=== PATIENT | female | born 1995 | race Caucasian/White ===

== ENCOUNTER → 2019-03-01 09:19 | Outpatient (CLI) | payer OTHER, SELFPAY ==
[2019-03-01 10:18] LABS: Hemoglobin A1C% w Est Avg Glu 5.5 % (4.0-6.0)
[2019-03-01 10:48] LABS: BUN Creatinine Ratio 12.5 (6-22); Blood Urea Nitrogen 5 mg/dL (7-17); Calcium 9.2 mg/dL (8.4-10.2); Carbon Dioxide 21 mmol/L (22-32); Chloride 105 mmol/L (98-107); Estimated Glomerular Filt Rate > 60.0 mL/min (>60); Glucose 129 mg/dL (70-100); HEMOLYSIS < 15 (0-50); Potassium 4.1 mmol/L (3.4-5.1); Sodium 137 mmol/L (137-145)
[2019-03-01 11:17] LABS: TSH w/ Reflex to FT4 2.98 uIU/mL (0.47-4.68)
== END ==
PROVIDERS: Visit Provider Family Medicine
DX: O24.419 Gestational diabetes mellitus in pregnancy, unspecified control (principal)
CPT/HCPCS: 36415; 80048; 83036; 84443

== ENCOUNTER → 2019-03-08 09:14 | Outpatient (CLI) | payer OTHER, SELFPAY ==
[2019-03-09 11:58] LABS: Strep Grp B PCR NEG for Grp B Strep
== END ==
PROVIDERS: Visit Provider Family Medicine
DX: Z34.83 Encounter for supervision of other normal pregnancy, third trimester (principal); Z3A.36 36 weeks gestation of pregnancy
CPT/HCPCS: 87653

== ENCOUNTER 2019-04-08 06:50 | Inpatient (IN) | payer OTHER, SELFPAY ==
[2019-04-08] MEDS: LACTATED RINGERS 1,000 ML 100 ML IV ×3 (07:55→20:17)
[2019-04-08 08:15] LABS: Add Manual Diff / Slide Review NO; Basophils Absolute Auto 0 /uL (0-100); Basophils Percent Auto 0.4 % (0-2); Eosinophils Absolute Auto 100 /uL (0-450); Eosinophils Percent Auto 0.8 % (2-4); Hematocrit 33.3 % (36-46); Hemoglobin 11.5 g/dL (12.0-16.0); Lymphocytes Absolute Auto 2200 /uL (1100-4500); Lymphocytes Percent Auto 23.4 % (25-40); Mean Corpuscular HGB Conc 34.6 % (30-36); Mean Corpuscular Hemoglobin 27.1 PG (26-34); Mean Corpuscular Volume 78.4 fL (80-100); Monocytes Absolute Auto 500 /uL (0-900); Monocytes Percent Auto 5.1 % (3-14); Neutrophils Absolute Auto 6600 /uL (1500-7000); Neutrophils Percent Auto 70.3 % (50-75); Platelet Count 228 X10^3/uL (150-400); Red Blood Cell Count 4.25 X10^6/uL (4.0-5.2); Red Cell Distribution Width 14.6 % (11.6-14.8); White Blood Cell Count 9.4 X10^3/uL (4.5-11.0)
[2019-04-08] MEDS: OXYTOCIN PREMIX 30 UNIT/500 ML PLAST..BAG IV (09:20)
[2019-04-08 09:58] VITALS: BP 135/74
--- NOTE | 2019-04-08 10:03 | PM.HP.1 ---
History of Present Illness History of Present Illness Date Patient Seen: 04/08/19 Time Patient Seen: 10:03 Chief complaint: PRGENANCY Narrative: Patient is a G2 para 1 estimated due date of 04/05/2019. Consistent with LMP and ultrasound. Patient's care was started late and reduced. She started seeing me at 35 weeks gestational age problems include late transfer of care with limited care history of gestational diabetes with 1st and obesity. She was not treated with gestational diabetes during this and 1 hour GGT was 114. She was brought in the hospital today for induction of labor. For post dates. An estimated increased gestational size. Her 1st baby was 8 lb 13 oz. During her care during the last trimester patient was doing well. She had no headaches no dizziness. No major contractions leaking of fluid. On evaluation today she says she feels fine. No headache dizziness. Vital signs are stable as well as afebrile. Patient's past medical history includes seasonal allergies gestational diabetes with previous ADHD as a child. Surgical history tonsils and adenoids and oral surgery Social history she and her partner here today. Alcohol use and they being before . Patient History Social History Smoking Status: Never smoker Family & Social History Tobacco & Substance use: Smoking Status Never smoker Meds Home Medications and Allergies Home Medications Medication Instructions Recorded Confirmed Type acetaminophen 500 mg tablet 500 mg PO ONCE PRN tab 03/08/19 04/05/19 History cetirizine 10 mg tablet 10 mg PO DAILY PRN 03/08/19 04/05/19 History Allergies Allergy/AdvReac Type Severity Reaction Status Date / Time No Known Drug Allergies Allergy Verified 04/05/19 09:53 Exam Vital Signs (past 8 hours): - 04/08/19 09:58 Blood Pressure 135/74 Narrative Exam Narrative: . General: Alert no apparent distress. Affect is appropriate. Filiberto it is uncomfortable. HEENT: Neck is supple without lymphadenopathy pupils equal round and reactive. Cardio: S1-S2 regular rate and rhythm. Respiratory: Lungs clear to auscultation. Abdomen: Gravid. Extremities: Normal deep tendon reflexes trace edema. : Cervical exam shows 70% effaced almost 1 cm soft mid position -2 station [place]: Sporadic filiberto heart tones: Heart rate of 135 category 1 tracing Objective Labs Result Diagrams: 04/08/19 07:50 Labs: Laboratory Results - last 24 hr 04/08/19 04/08/19 07:50 07:50 WBC 9.4 RBC 4.25 Hgb 11.5 L Hct 33.3 L MCV 78.4 L MCH 27.1 MCHC 34.6 RDW 14.6 Plt Count 228 Neut % (Auto) 70.3 Lymph % (Auto) 23.4 L [place] % (Auto) 5.1 Eos % (Auto) 0.8 L Baso % (Auto) 0.4 Neut # (Auto) 6600 Lymph # (Auto) 2200 [place] # (Auto) 500 Eos # (Auto) 100 Baso # (Auto) 0 Blood Type A Positive Antibody Screen Negative Assessment & Plan Assessment & Plan narrative: 23-year-old G2 para 1 estimated due date of 04/05/2019 40+ weeks for induction of labor. Labor is for being passed 40 weeks and suspected large gestational age with history of gestational diabetes and 1st . Patient's Kwon score is 7. She will be started with Pitocin induction. Risks benefits and common complications of induction of labor reviewed with the patient and partner today informed consent was obtained and orders were written for. Due to patient's body habitus. Patient is providing mild difficulty with monitoring. We may have to use internal monitoring to get a better tracing.
--- NOTE | 2019-04-08 17:10 | P.PN_ITS ---
Subjective Subjective Date Patient Seen: 04/08/19 Time Patient Seen: 17:10 Interval history: Patient seen and evaluated multiple times today. Pitocin got up to 20 mm use. He category 1 to category 2 tracing. heart tones were hard to trace x2 to a mom's body habitus.. Despite adequate contractions. There was no significant cervical change. Mom's vital signs were stable throughout the day and she was afebrile. Cervical change was really not readily apparent. On multiple exams throughout the day. Discussion with the patient and patient's about the category of the tracing Pitocin induction and lack of cervical change. And being post dates. We discussed options about coming back to the hospital with daily and nsts. And retry induction or to proceed with section. After discussion with patient and patient's partner about the risks of an operative delivery versus daily and STDs and retry of induction in 48 hours. And review of concerned about take category 2 tracing sending him home. The and the likelihood of them having a successful trial of labor after today would be limited. Discussed about the concerns of possible nuchal cord but cornea. Also with the her being post dates and a large baby. After review her and her partner the risks benefits common complications of C- section such as bleeding infection injury to bladder or bowel or needed a blood transfusion informed consent was obtained by the patient and signed. Exam Vital Signs (past 8 hours): - 04/08/19 09:58 Blood Pressure 135/74 Objective Labs Result Diagrams: 04/08/19 07:50 Labs: Laboratory Results - last 24 hr 04/08/19 04/08/19 07:50 07:50 WBC 9.4 RBC 4.25 Hgb 11.5 L Hct 33.3 L MCV 78.4 L MCH 27.1 MCHC 34.6 RDW 14.6 Plt Count 228 Neut % (Auto) 70.3 Lymph % (Auto) 23.4 L [place] % (Auto) 5.1 Eos % (Auto) 0.8 L Baso % (Auto) 0.4 Neut # (Auto) 6600 Lymph # (Auto) 2200 [place] # (Auto) 500 Eos # (Auto) 100 Baso # (Auto) 0 Blood Type A Positive Antibody Screen Negative
[2019-04-08] MEDS: CEFAZOLIN 2 GM/100 ML FROZ.PIGGY IV (17:46)
--- NOTE | 2019-04-08 18:04 | SUR.OPER ---
Supine on Padded OR bed, head on pillow, safety belt at thigh, arms secured on padded arm boards at <90 degrees abduction. Bump under right buttock. Legs uncrossed with pillow under knees, gel pad to heels, tape over blanket to lower legs.
--- NOTE | 2019-04-08 18:20 | SUR.OPER ---
FHTs 141 TOB 18:08 alive boy Cord blood x 2 and placenta given to OB nurse
--- NOTE | 2019-04-08 18:46 | P.PCN_ITS ---
Procedures Date/Time Date of procedure: 04/08/19 Time of procedure: 18:47 General Procedure description: Procedure: Lower segment transverse section Consent: Verbal and written informed consent were obtained from the patient placed on the chart. Indications: 23-year-old G2 para 1 category 2 tracing with failed induction with failure to progress Findings: Normal uterus normal ovaries Normal male Apgars 8 and 9 Anesthesia: Spinal Surgeon: Dr. Jair Peace Marketing Communications Assistant: Dr. Parker Alvarado Estimated blood loss: 500 mL Drains: Beltran to gravity. IV fluids: 1800 Description of procedure: The patient was brought to the operating room after her spinal epidural, preparation, and Beltran had been performed. The abdomen was prepped and draped in tested for for analgesia. When it was found to be adequate, a lower abdo eduard Pfannenstiel incision was made with first with a knife and cared down to the fascia with a second knife. The fascia was incised in the midline and extended laterally with a knife. Bleeding points were clamped with hemostats and Bovie coagulated. The rectus muscles were by blunt dissection. The rectus muscles were divided in the midline and the peritoneum was grasped with hemostats and carefully entered with Hawkins scissors. The incision was extended bilaterally. The bladder blade was then placed. The vesicoperitoneum was grasped with smooth pickups, entered with Metzenbaum scissors, and extended laterally. The bladder flap was created by gently blunt dissection and placed behind the bladder blade. The lower uterine segment was noted to be thin was carefully incised with the scalpel and extended laterally with the fingers. A live infant was found to be in the vertex position. The head was then easily elevated with the hand. Head was delivered with the use of a vacuum. The baby was then suctioned and cried immediately, and was handed to the waiting attendant. The placenta was delivered manually. The uterus was explored with a wet lap sponge and found to be clear membranes. The first layer of the uterine closure was with running locking #1 chromic catgut suture. The second layer with an imbricating #1 chromic catgut suture. Hemostasis was carefully checked and found to be satisfactory. The bladder flap was closed with a running 2-0 chromic catgut suture. The fallopian tubes and ovaries were inspected and to be found normal bilaterally. After sponge and needle counts were found to be correct the peritoneum was closed with 2-0 chromic catgut suture. Rectus muscles were approximated in the lower midline. The fascia was closed with a 2 running 0 Vicryl from lateral to midline. The subcutaneous tissue was approximated with interrupted 3.0 plain gut. Bleeding points were Bovie and coagulated. The skin was closed with 1-0 running subcuticular stitch. Urinary output was adequate and normal patient left to the recovery room in good condition.
[2019-04-08 18:51] VITALS: BP 117/66; PULSE 74; RESP 14; TEMP 36.3; O2SAT 99
[2019-04-08 18:56] VITALS: BP 113/60; PULSE 78; RESP 11; O2SAT 97
[2019-04-08 19:01] VITALS: BP 104/66; PULSE 65; RESP 14; O2SAT 97
[2019-04-08 19:06] VITALS: BP 115/69; PULSE 62; PULSE 68; RESP 13; RESP 14; TEMP 36.6; O2SAT 97; O2SAT 98
[2019-04-08 19:21] VITALS: BP 111/70; PULSE 71; RESP 15; TEMP 36.6; O2SAT 98
--- NOTE | 2019-04-08 19:25 | SUR.PHASEI ---
Phase I transfer note: Patient arrived to PACU at 1851 via inpatient bed. VSS on arrival. AA/Ox3. Dermatome level at T-4. No complaints of pain or discomfort. FF @ . Scant Bear zendejas. SCD's on. Tolerating Ice chips. Telephone report [facility]. Stable for transfer.
[2019-04-09] MEDS: KETOROLAC 30 MG/ML VIAL IV ×3 (00:30→12:20)
[2019-04-09] MEDS: OXYCODONE/ACETAMINOPHEN 5/325 TABLET 2 TAB PO (00:59)
[2019-04-09 04:34] VITALS: BP 112/67; PULSE 85; RESP 16; TEMP 36.9
--- NOTE | 2019-04-09 06:46 | P.PN_ITS ---
Subjective Subjective Date Patient Seen: 04/09/19 Time Patient Seen: 06:46 Interval history: day 1. Status post for category 2 tracing. Failure to progress. Large gestational infant. Mom's doing well postoperatively. Minimal incision pain she is using Toradol. Patient was able to stand up at the bedside yesterday. She is off IV fluids had some clear liquid diet. She still has a Beltran catheter in. Bleeding is anticipated she is afebrile. Breast-feeding is going okay. Exam Vital Signs (past 8 hours): Oxygen Delivery Method Room Air Narrative Exam Narrative: General: Alert no apparent distress. Affect is appropriate. Ivon it is uncomfortable. HEENT: Neck is supple without lymphadenopathy pupils equal round and reactive. Cardio: S1-S2 regular rate and rhythm. Respiratory: Lungs clear to auscultation. Abdomen: Uterus firm. Incision clean dry and intact. Extremities: Normal deep tendon reflexes trace edema. Objective Labs Result Diagrams: 04/08/19 07:50 Labs: Laboratory Results - last 24 hr 04/08/19 04/08/19 07:50 07:50 WBC 9.4 RBC 4.25 Hgb 11.5 L Hct 33.3 L MCV 78.4 L MCH 27.1 MCHC 34.6 RDW 14.6 Plt Count 228 Neut % (Auto) 70.3 Lymph % (Auto) 23.4 L [place] % (Auto) 5.1 Eos % (Auto) 0.8 L Baso % (Auto) 0.4 Neut # (Auto) 6600 Lymph # (Auto) 2200 [place] # (Auto) 500 Eos # (Auto) 100 Baso # (Auto) 0 Blood Type A Positive Antibody Screen Negative Assessment & Plan Assessment & Plan narrative: Postoperative day 1 status post . Remove SCDs. Remove Beltran catheter. IV has been hep-locked this can be removed later today. She is getting Toradol with good pain relief. Bleeding is anticipated she is afebrile. Patient is tolerating diet. Continue out of bed to chair limited ambulation working on breast-feeding. Transition to oral pain medication.
[2019-04-09 07:31] LABS: Add Manual Diff / Slide Review NO; Basophils Absolute Auto 0 /uL (0-100); Basophils Percent Auto 0.3 % (0-2); Eosinophils Absolute Auto 0 /uL (0-450); Eosinophils Percent Auto 0.4 % (2-4); Hematocrit 27.9 % (36-46); Hemoglobin 9.6 g/dL (12.0-16.0); Lymphocytes Absolute Auto 1900 /uL (1100-4500); Mean Corpuscular HGB Conc 34.3 % (30-36); Mean Corpuscular Hemoglobin 27.1 PG (26-34); Mean Corpuscular Volume 79.2 fL (80-100); Monocytes Absolute Auto 600 /uL (0-900); Monocytes Percent Auto 6.6 % (3-14); Neutrophils Absolute Auto 6600 /uL (1500-7000); Neutrophils Percent Auto 71.7 % (50-75); Platelet Count 179 X10^3/uL (150-400); Red Blood Cell Count 3.52 X10^6/uL (4.0-5.2); Red Cell Distribution Width 14.6 % (11.6-14.8); White Blood Cell Count 9.2 X10^3/uL (4.5-11.0)
[2019-04-09] MEDS: PRENATAL VIT,CALC/IRON/FOLIC 1 TABLET 1 TAB PO (09:39)
[2019-04-09] MEDS: DOCUSATE 250 MG CAPSULE PO (09:39)
[2019-04-09] MEDS: OXYCODONE/ACETAMINOPHEN 5/325 TABLET 1 TAB PO ×2 (16:41→21:00)
[2019-04-09] MEDS: IBUPROFEN 600 MG TABLET PO (21:25)
[2019-04-10] MEDS: OXYCODONE/ACETAMINOPHEN 5/325 TABLET 2 TAB PO ×3 (01:04→10:22)
[2019-04-10] MEDS: IBUPROFEN 600 MG TABLET PO ×2 (03:04→08:54)
[2019-04-10] MEDS: PRENATAL VIT,CALC/IRON/FOLIC 1 TABLET 1 TAB PO (08:54)
[2019-04-10] MEDS: DOCUSATE 250 MG CAPSULE PO (08:54)
--- NOTE | 2019-04-10 09:19 | PM.DS.1 ---
History of Present Illness History of Present Illness Chief complaint: PRGENANCY Narrative: Patient is a G2 para 1 estimated due date of 04/05/2019. Consistent with LMP and ultrasound. Patient's care was started late and reduced. She started seeing me at 35 weeks gestational age problems include late transfer of care with limited care history of gestational diabetes with 1st and obesity. She was not treated with gestational diabetes during this and 1 hour GGT was 114. She was brought in the hospital today for induction of labor. For post dates. An estimated increased gestational size. Her 1st baby was 8 lb 13 oz. During her care during the last trimester patient was doing well. She had no headaches no dizziness. No major contractions leaking of fluid. On evaluation today she says she feels fine. No headache dizziness. Vital signs are stable as well as afebrile. Patient's past medical history includes seasonal allergies gestational diabetes with previous ADHD as a child. Surgical history tonsils and adenoids and oral surgery Social history she and her partner here today. Alcohol use and they being before . Discharge Providers Provider Date of admission: 04/08/19 06:50 Discharge Date: 04/10/19 Consults: 04/08/19 19:33 Consult to Cryptographic Vulnerability Analyst Routine Comment: Discharge provider: Jair Peace MD Summary Hospital Course Discharge Diagnosis: 23-year-old G2 para 2 status post with routine postoperative care Hospital Course: 23-year-old G2 para 240+ weeks gestational age delivered a male status post doing well. Postoperative day 1 Beltran catheter STDs removed patient was able to ambulate and tolerate her diet. Patient was transitioned to oral pain medication. Postoperative day 2. Positive ambulation. No difficulty with urination pain was well controlled with oral medication. Patient had minimal amount of vaginal bleeding minimal amount of lower extremity edema. Exam Vital Signs (past 8 hours): Oxygen Delivery Method Room Air Narrative Exam Narrative: General: Alert no apparent distress. Affect is appropriate. Ivon it is uncomfortable. HEENT: Neck is supple without lymphadenopathy pupils equal round and reactive. Cardio: S1-S2 regular rate and rhythm. Respiratory: Lungs clear to auscultation. Abdomen: Uterus firm. Incision clean dry and intact. Extremities: Normal deep tendon reflexes trace edema. Objective Labs Result Diagrams: 04/09/19 07:17 Discharge Plan Discharge Plan Patient Disposition: Home Discharge comment: Follow-up with Dr. Peace in 7 days in the office. Patient will make an appointment. Return if fevers chills incisional discharge or soaking through more than 1 pad an hour for 4 hours. Discharge Med Rec/Prescriptions Prescriptions: New oxycodone-acetaminophen 5-325 mg Tablet 2 tab PO Q4HR PRN (Reason: Pain, Severe (7-10)) Qty: 30 RF: 0 ibuprofen 600 mg Tablet 600 mg PO Q6HR PRN (Reason: As Needed For Fever/Mild Pain) Qty: 30 RF: 0 docusate sodium 250 mg Capsule 250 mg PO DAILY Qty: 30 RF: 0 Prenatabs Rx 29 mg iron- 1 mg Tablet 1 tab PO DAILY Qty: 90 RF: 0 Continued cetirizine [Zyrtec] 10 mg tablet 10 mg PO DAILY PRN (Reason: Acid Reflux) RF: 0 acetaminophen [Tylenol Extra Strength] 500 mg tablet 500 mg PO ONCE PRN (Reason: Headache) RF: 0 Visit Report/Discharge Packet Visit Report Forms: Patient Portal/API, Stroke Signs & Symptoms
== END 2019-04-10 11:05 | disposition home or self-care (01) | DRG 788 ==
PROVIDERS: Admitting Provider Family Medicine; Visit Provider Family Medicine
PROC: 10D00Z1 Extraction of Products of Conception, Low, Open Approach (ICD-10-PCS; CPT 59514; principal; 2019-04-08 17:00)
DX: O48.0 Post-term pregnancy (principal); O34.219 Maternal care for unspecified type scar from previous cesarean delivery; Z3A.40 40 weeks gestation of pregnancy; Z37.0 Single live birth; O61.0 Failed medical induction of labor
CPT/HCPCS: 36415; 59050; 59514; 59515; 76815; 85025; 86850; 86900; 86901; G0379; J0690; J1885; J2274; J2590